=== PATIENT | female | born 1950 | race Caucasian/White ===

== ENCOUNTER 2020-06-02 06:31 | Emergency (ER) | payer MEDICARE, BC ==
[~2020-06-02] VITALS: Ht 152.4 cm; Wt 86.2 kg
--- NOTE | 2020-06-02 06:33 | NUR ---
Patient brought in by rescue ambulance [facility] for elevated blood pressure, patient doesnt appear to be under any acute distress, blood pressure noted 137/74, heart rate 66, right forearm 20g placed
--- NOTE | 2020-06-02 06:47 | NUR ---
at bedside for assessment
[2020-06-02] MEDS ORDERED: ASPI-1420 PO (06:50)
[2020-06-02] MEDS ORDERED: LOSA25TA27 PO (06:50)
[2020-06-02] MEDS ORDERED: metoprolol PO (06:50)
[2020-06-02] MEDS ORDERED: METF-440 PO (06:50)
[2020-06-02] MEDS ORDERED: AMLO5TAB9 PO (06:50)
[2020-06-02] MEDS ORDERED: ATOR40TA PO (06:50)
--- NOTE | 2020-06-02 07:10 | NUR ---
Recieved pt from [place] RN. Pt bib RA for HTN. Pt in no acute distress. Seen and examined by Dr. Jordan.
[2020-06-02 07:11] LABS: BASOPHILS # (AUTO) 0.1 K/uL (0.0-8.0); BASOPHILS % (AUTO) 0.7 % (0.0-2.0); EOSINOPHILS # (AUTO) 0.2 K/uL (0.0-0.7); EOSINOPHILS % (AUTO) 2.7 % (0.0-7.0); HEMATOCRIT 38.2 % (31.2-41.9); HEMOGLOBIN 12.6 g/dL (10.9-14.3); LYMPHOCYTES # (AUTO) 3.3 K/uL (20.0-40.0); LYMPHOCYTES % (AUTO) 40.2 % (20.5-51.5); MEAN CORPUSCULAR HEMOGLOBIN 27.1 uug (24.7-32.8); MEAN CORPUSCULAR HGB CONC 33 g/dL (32.3-35.6); MEAN CORPUSCULAR VOLUME 82.2 fL (75.5-95.3); MONOCYTES # (AUTO) 0.7 K/uL (2.0-10.0); MONOCYTES % (AUTO) 8.9 % (0.0-11.0); NEUTROPHILS # (AUTO) 3.9 K/uL (1.8-8.9); NEUTROPHILS % (AUTO) 47.5 % (38.5-71.5); PLATELET COUNT (AUTO) 300 K/uL (179-408); RED BLOOD CELL COUNT(AUTO) 4.65 MIL/uL (3.63-4.92); WHITE BLOOD COUNT (AUTO) 8.1 K/uL (3.8-11.8)
[2020-06-02 07:22] LABS: CARBON DIOXIDE 26 mmol/L (21-32); CHLORIDE 105 mmol/L (98-107); CREATININE 0.9 mg/dL (0.6-1.3); GLUCOSE 119 mg/dL (74-106); POTASSIUM 4.5 mmol/L (3.5-5.1); UREA NITROGEN, BLOOD 23 mg/dL (7-18)
[2020-06-02 07:28] LABS: ALANINE AMINOTRANSFERASE 25 U/L (14-59); ALKALINE PHOSPHATASE 84 U/L (50-136); ASPARTATE AMINOTRANSFERASE 18 U/L (15-37); BILIRUBIN,DIRECT < 0.1 mg/dL (0.0-0.2); BILIRUBIN,TOTAL 0.2 mg/dL (0.2-1.0); TOTAL PROTEIN, SERUM 7.6 g/dL (6.4-8.2)
[2020-06-02 08:09] LABS: *BILIRUBIN,URIN NEGATIVE (NEGATIVE); *CLARITY,URINE CLEAR (CLEAR); *COLOR,URINE LIGHT YELLOW (YELLOW); *KETONES,URINE NEGATIVE (NEGATIVE); *UROBILINOGEN,URINE 0.2 E.U./dl (NORMAL); LEUKOCYTE ESTERASE ,URINE NEGATIVE (NEGATIVE); NITRITE, URINE NEGATIVE (NEGATIVE); PH,URINE 6.5 (5.0-8.0); UGLUCOSE NEGATIVE (NEGATIVE)
[2020-06-02 08:24] LABS: *BLOOD, URINE TRACE (NEGATIVE)
--- NOTE | 2020-06-02 08:45 | NUR ---
Per Dr. Jordan pt stable for DC. DC instructions given and reviewed with patient, copies of labs and rays provided. Verbalized understanding. IV dc'd noted with tip intact. Left ER in stable condition.
--- NOTE | 2020-06-02 08:45 | NUR ---
Magali matute in [facility] - 06/02/20 at 0847 by TUSHAR Albert MEI
[2020-06-02 08:50] VITALS: BP 129/65
[2020-06-02 11:44] LABS: BACTERIA,URINE FEW /HPF (NONE SEEN); RBC,URINE 0-3 /HPF (0-3); SQUAMOUS EPITHELIAL CELL,UR MODERATE /HPF (NONE SEEN); WBC,URINE 0-3 /HPF (0-3)
== END 2020-06-02 08:54 | disposition home or self-care (01) ==
LOC: ER 06:36
DX: I10 Essential (primary) hypertension (principal); Z79.82 Long term (current) use of aspirin; Z79.899 Other long term (current) drug therapy; F32.9 Major depressive disorder, single episode, unspecified; E78.5 Hyperlipidemia, unspecified; E11.9 Type 2 diabetes mellitus without complications
CPT/HCPCS: 36415; 70030-TC; 71045; 85025; 85730; 93005; A4663

== ENCOUNTER 2020-10-12 09:24 | Emergency (ER) | payer MEDICARE, BC ==
[~2020-10-12] VITALS: Ht 152.4 cm; Wt 86.2 kg
[~2020-10-12 09:24] MED LIST: AMLO-212 PO; ASPI-1420 PO; ATOR40TA PO; LOSA25TA27 PO; METF-440 PO; metoprolol PO
--- NOTE | 2020-10-12 09:30 | NUR ---
Dr Davis at the bedside for MSE.
[2020-10-12 10:03] LABS: BASOPHILS % (AUTO) 0.5 % (0.0-2.0); EOSINOPHILS # (AUTO) 0.2 K/uL (0.0-0.7); EOSINOPHILS % (AUTO) 2.3 % (0.0-7.0); HEMATOCRIT 38.4 % (31.2-41.9); HEMOGLOBIN 12.6 g/dL (10.9-14.3); LYMPHOCYTES # (AUTO) 2.3 K/uL (20.0-40.0); LYMPHOCYTES % (AUTO) 30.1 % (20.5-51.5); MEAN CORPUSCULAR HGB CONC 33 g/dL (32.3-35.6); MEAN CORPUSCULAR VOLUME 82.3 fL (75.5-95.3); MONOCYTES # (AUTO) 0.5 K/uL (2.0-10.0); NEUTROPHILS # (AUTO) 4.5 K/uL (1.8-8.9); NEUTROPHILS % (AUTO) 60.1 % (38.5-71.5); PLATELET COUNT (AUTO) 282 K/uL (179-408); RED BLOOD CELL COUNT(AUTO) 4.67 MIL/uL (3.63-4.92); WHITE BLOOD COUNT (AUTO) 7.6 K/uL (3.8-11.8)
[2020-10-12 10:10] LABS: CREATININE 0.8 mg/dL (0.6-1.3); POTASSIUM 4.1 mmol/L (3.5-5.1)
--- NOTE | 2020-10-12 10:26 | NUR ---
Patient is resting comfortably in bed with eyes closed, NAD noted.
[2020-10-12 10:40] VITALS: BP 124/62
--- NOTE | 2020-10-12 10:42 | NUR ---
Patient discharged to home in stable condition. Written and verbal after care instructions given. Patient verbalizes understanding of instructions. Stressed follow up or return to ER for worsening s/s.
== END 2020-10-12 10:42 | disposition home or self-care (01) ==
LOC: ER 09:24
DX: I10 Essential (primary) hypertension (principal); E78.5 Hyperlipidemia, unspecified; E11.9 Type 2 diabetes mellitus without complications; Z79.84 Long term (current) use of oral hypoglycemic drugs; Z79.899 Other long term (current) drug therapy
CPT/HCPCS: 36415; 70030-TC; 85025; 93005; A4663

== ENCOUNTER 2025-01-15 13:58 | Inpatient (IN) | payer MEDICARE, BC ==
[~2025-01-15] VITALS: Ht 152.4 cm; Wt 80.7 kg
[2025-01-15] MEDS ORDERED: OLME40TA12 PO (14:20)
[2025-01-15] MEDS ORDERED: ESCI20TA44 PO (14:20)
[2025-01-15] MEDS ORDERED: DENO60DI SQ (14:20)
[2025-01-15] MEDS ORDERED: AMLO10TA59 PO (14:20)
[2025-01-15 14:42] LABS: BASOPHILS % (AUTO) 0.4 % (0.0-2.0); EOSINOPHILS # (AUTO) 0.2 K/uL (0.0-0.7); EOSINOPHILS % (AUTO) 2.3 % (0.0-7.0); HEMATOCRIT 34.1 % (31.2-41.9); LYMPHOCYTES # (AUTO) 1.8 K/uL (0.8-4.8); LYMPHOCYTES % (AUTO) 25.3 % (20.5-51.5); MEAN CORPUSCULAR HEMOGLOBIN 26.9 uug (24.7-32.8); MEAN CORPUSCULAR HGB CONC 32 g/dL (32.3-35.6); MEAN CORPUSCULAR VOLUME 83.1 fL (75.5-95.3); MONOCYTES # (AUTO) 0.5 K/uL (0.1-1.30); NEUTROPHILS # (AUTO) 4.5 K/uL (1.8-8.9); PLATELET COUNT (AUTO) 252 K/uL (179-408); RED CELL DISTRIBUTION WIDTH 14.3 % (12.3-17.7)
[2025-01-15 14:48] LABS: DIFFERENTIAL COMMENT 1
[2025-01-15 14:53] LABS: CALCIUM 8.9 mg/dL (8.5-10.1); CARBON DIOXIDE 28 mmol/L (21-32); CHLORIDE 107 mmol/L (98-107); CREATININE 1.4 mg/dL (0.6-1.3); GLUCOSE 119 mg/dL (74-106); POTASSIUM 4.7 mmol/L (3.5-5.1); SODIUM SERUM 140 mmol/L (136-145); UREA NITROGEN, BLOOD 34 mg/dL (7-18)
[2025-01-15 15:08] LABS: THYROID STIMULATING HORMONE 1.531 mIU/mL (0.358-3.740)
[2025-01-15] MEDS: IV NORMAL SALINE 1000 ML BAG IV ONE (15:47)
[2025-01-15 16:26] LABS: *BILIRUBIN,URIN NEGATIVE (NEGATIVE); *BLOOD, URINE NEGATIVE (NEGATIVE); *CLARITY,URINE CLEAR (CLEAR); *COLOR,URINE YELLOW (YELLOW); *KETONES,URINE NEGATIVE (NEGATIVE); *PROTEIN,URINE NEGATIVE (NEGATIVE); *UROBILINOGEN,URINE 0.2 E.U./dl (NORMAL); LEUKOCYTE ESTERASE ,URINE NEGATIVE (NEGATIVE); NITRITE, URINE POSITIVE (NEGATIVE); UGLUCOSE NEGATIVE (NEGATIVE)
[2025-01-15 16:38] LABS: BACTERIA,URINE FEW /HPF (NONE SEEN); SQUAMOUS EPITHELIAL CELL,UR FEW /HPF (NONE SEEN); WBC,URINE NONE SEEN /HPF (0-3)
[2025-01-15] MEDS ORDERED: BUPR-319 PO (17:37)
[2025-01-15] MEDS ORDERED: METO-356 PO (17:39)
[2025-01-15] MEDS ORDERED: TRAZ-257 PO (17:39)
[2025-01-15] MEDS ORDERED: LEQVIO SQ (17:42)
[2025-01-15 18:09] VITALS: BP 135/100; TEMP 97.9; O2SAT 97
[2025-01-15 19:45] VITALS: BP 131/53; TEMP 97.7; O2SAT 97
[2025-01-15] MEDS ORDERED: hydrALAZINE HCL 25 MG TABLET PO PRN (20:15)
[2025-01-15] MEDS ORDERED: ACETAMINOPHEN 325 MG TABLET PO PRN (20:15)
[2025-01-15] MEDS ORDERED: DEXTROSE 50% 50 ML DISP.SYRIN IV PRN (20:15)
[2025-01-15] MEDS ORDERED: ONDANSETRON 4 MG/2 ML VIAL IV PRN (20:15)
[2025-01-15] MEDS: DOCUSATE SODIUM 100 MG CAPSULE PO SCH (20:39)
[2025-01-15] MEDS: TRAZODONE 100 MG TABLET PO SCH (20:39)
[2025-01-15] MEDS: ATORVASTATIN 40 MG TABLET PO SCH (20:39)
[2025-01-15] MEDS: BLOOD SUGAR DIAGNOSTIC 1 EACH STRIP VI SCH (20:43)
[2025-01-15] MEDS: IV 1/2NS 1000 ML 1,000 ML IV PRN (20:47)
[2025-01-15] MEDS: INSULIN REGULAR, HUMAN 1000 UNIT/10 ML VIAL SQ PRN (20:53)
[2025-01-15] MEDS: ENOXAPARIN SODIUM 30 MG/0.3 ML DISP.SYRIN SUBCUT SCH (21:01)
[2025-01-16 00:39] VITALS: BP 130/58; TEMP 97.8; O2SAT 96
[2025-01-16 03:48] VITALS: BP 112/62; TEMP 97.3; O2SAT 93
[2025-01-16] MEDS: PANTOPRAZOLE SODIUM 40 MG TABLET.DR PO SCH (06:31)
[2025-01-16 07:24] VITALS: BP 126/50; TEMP 97.8; O2SAT 96
[2025-01-16 07:49] LABS: BASOPHILS % (AUTO) 0.4 % (0.0-2.0); EOSINOPHILS # (AUTO) 0.2 K/uL (0.0-0.7); EOSINOPHILS % (AUTO) 2.9 % (0.0-7.0); HEMATOCRIT 34.2 % (31.2-41.9); LYMPHOCYTES # (AUTO) 2.6 K/uL (0.8-4.8); LYMPHOCYTES % (AUTO) 40.9 % (20.5-51.5); MEAN CORPUSCULAR HEMOGLOBIN 26.9 uug (24.7-32.8); MEAN CORPUSCULAR HGB CONC 32 g/dL (32.3-35.6); MEAN CORPUSCULAR VOLUME 83.7 fL (75.5-95.3); MONOCYTES # (AUTO) 0.5 K/uL (0.1-1.30); MONOCYTES % (AUTO) 7.3 % (0.0-11.0); NEUTROPHILS # (AUTO) 3.1 K/uL (1.8-8.9); NEUTROPHILS % (AUTO) 48.5 % (38.5-71.5); PLATELET COUNT (AUTO) 247 K/uL (179-408); RED BLOOD CELL COUNT(AUTO) 4.09 MIL/uL (3.63-4.92); RED CELL DISTRIBUTION WIDTH 14.2 % (12.3-17.7); WHITE BLOOD COUNT (AUTO) 6.3 K/uL (3.8-11.8)
[2025-01-16 07:54] LABS: DIFFERENTIAL COMMENT 1
[2025-01-16 08:01] LABS: ALANINE AMINOTRANSFERASE 32 U/L (14-59); ALBUMIN 3.1 g/dL (3.4-5.0); ALKALINE PHOSPHATASE 61 U/L (50-136); ASPARTATE AMINOTRANSFERASE 20 U/L (15-37); BILIRUBIN,TOTAL 0.3 mg/dL (0.2-1.0); CALCIUM 8.5 mg/dL (8.5-10.1); CARBON DIOXIDE 25 mmol/L (21-32); CHLORIDE 107 mmol/L (98-107); CHOLESTEROL 106 mg/dL (<200); CREATININE 1.3 mg/dL (0.6-1.3); GLUCOSE 112 mg/dL (74-106); HDL CHOLESTEROL 46 mg/dL (40-60); MAGNESIUM 2.1 mg/dL (1.8-2.4); PHOSPHOROUS 3.7 mg/dL (2.5-4.9); POTASSIUM 4.3 mmol/L (3.5-5.1); SODIUM SERUM 141 mmol/L (136-145); TOTAL PROTEIN, SERUM 6.3 g/dL (6.4-8.2); TRIGLYCERIDES 98 MG/DL (30-150); UREA NITROGEN, BLOOD 31 mg/dL (7-18)
[2025-01-16 08:02] LABS: IRON, SERUM 74 ug/dL (50-175)
[2025-01-16] MEDS: ESCITALOPRAM OXALATE 10 MG TABLET PO SCH (08:27)
[2025-01-16] MEDS: METOPROLOL SUCCINATE XL 25 MG TAB.SR.24H PO SCH (08:27)
[2025-01-16] MEDS: buPROPion XL 150 MG TAB.SR.24H PO SCH (08:28)
[2025-01-16] MEDS ORDERED: Medication Not On Formulary EA (Bupropion Hcl (Bupropion Xl) 1 TAB) PO SCH (09:00)
[2025-01-16] MEDS ORDERED: Medication Not On Formulary EA (Escitalopram Oxalate 1 TAB) PO SCH (09:00)
[2025-01-16 10:22] VITALS: BP 116/47; TEMP 98.6; O2SAT 96
== END 2025-01-16 14:10 | disposition home health service (06) | DRG 640 ==
LOC: ER 13:58 → TELE3 16:34
PROVIDERS: ADMIT Internal Medicine; ATTEND Internal Medicine
DX: E86.0 Dehydration (principal); N17.0 Acute kidney failure with tubular necrosis; D68.59 Other primary thrombophilia; R55 Syncope and collapse; E78.5 Hyperlipidemia, unspecified; M81.0 Age-related osteoporosis without current pathological fracture; E66.9 Obesity, unspecified; Z68.34 Body mass index [BMI] 34.0-34.9, adult; I12.9 Hypertensive chronic kidney disease with stage 1 through stage 4 chronic kidney disease, or unspecified chronic kidney disease; E11.22 Type 2 diabetes mellitus with diabetic chronic kidney disease; N18.2 Chronic kidney disease, stage 2 (mild); Z74.09 Other reduced mobility; Z90.5 Acquired absence of kidney; Z96.611 Presence of right artificial shoulder joint; Z85.528 Personal history of other malignant neoplasm of kidney; Z88.0 Allergy status to penicillin; I49.8 Other specified cardiac arrhythmias; M15.9 Polyosteoarthritis, unspecified; Z79.84 Long term (current) use of oral hypoglycemic drugs; Z90.49 Acquired absence of other specified parts of digestive tract; Z79.69 Long term (current) use of other immunomodulators and immunosuppressants
CPT/HCPCS: 36415; 71045; 83550; 83735; 84100; 84443; 84484; 85025; 87077; 87086; A4606; A4663; G0378; J1650; J1815; J7040